=== PATIENT | male | born 1990 | race Caucasian/White ===

== ENCOUNTER 2019-03-31 01:50 | Emergency (ER) | payer SELFPAY ==
[~2019-03-31] VITALS: Ht 182.9 cm; Wt 106.8 kg
[2019-03-31 01:51] VITALS: BP 160/88
[2019-03-31] MEDS ORDERED: APAP500T10 PO (01:55)
[2019-03-31] MEDS ORDERED: AMOX500C PO (01:55)
[2019-03-31] MEDS ORDERED: IBUP80TA PO (01:55)
== END 2019-03-31 02:32 | disposition left against medical advice (07) ==
LOC: M ED 01:50
DX: Z53.21 Procedure and treatment not carried out due to patient leaving prior to being seen by health care provider (principal)